=== PATIENT | male | born 1990 ===

== ENCOUNTER → 2021-04-16 15:13 | Outpatient (CLI) | payer OTHER, SELFPAY ==
--- NOTE | ~2021-04-16 | MR_ITS ---
EXAMINATION: MR cervical spine wo con EXAM DATE: 04/16/2021 15:55 INDICATION: Cervical radiculopathy, left-sided neck and shoulder pain. Left-sided chest pain. TECHNIQUE: Multi-sequential, multiplanar MR images of the cervical spine were obtained without contra st. Axial T2, axial T2 MERGE sequence. Sagittal T1, T2, T2 fat saturation images also obtained. Th ere is no prior study for comparison. FINDINGS: There is mild disc disease at C5-6. The vertebral body and disc heights are otherwise well maintained. The vertebral bodies are aligned in the AP dimension. There are no suspicious marrow sig nal abnormalities. The spinal cord signal intensity and intrinsic morphology is normal. Cervicomedull brittni junction is normal in appearance. Paraspinal soft tissue is unremarkable. Incidental low signal i ntensity right thyroid lesion measuring 1.6 cm. Level by level evaluation: C2-C3: Disc does not extend beyond the endplate margin. Uncovertebral joint arthropathy: None. Facet joint arthropathy: None. Neural foraminal stenosis: No stenosis. Central canal stenosis: No stenosis. C3-C4: Disc does not extend beyond the endplate margin. Uncovertebral joint arthropathy: Mild bilateral. Facet joint arthropathy: Mild bilateral. Neural foraminal stenosis: No stenosis. Central canal stenosis: No stenosis. C4-C5: There is a minimal diffuse disc bulge. Uncovertebral joint arthropathy: Mild to moderate bilateral. Facet joint arthropathy: Mild bilateral. Neural foraminal stenosis: Mild bilateral. Central canal stenosis: No stenosis. C5-C6: There is a mild diffuse disc bulge. Uncovertebral joint arthropathy: Mild to moderate. Facet joint arthropathy: Mild. Neural foraminal stenosis: Mild bilateral. Central canal stenosis: Mild. C6-C7: There is a minimal diffuse disc bulge. Uncovertebral joint arthropathy: Mild to moderate right, mild left. Facet joint arthropathy: Minimal. Neural foraminal stenosis: Mild right. Central canal stenosis: No stenosis. C7-T1: Disc does not extend beyond the endplate margin. Uncovertebral joint arthropathy: Mild bilateral. Facet joint arthropathy: None. Neural foraminal stenosis: No stenosis. Central canal stenosis: No stenosis. IMPRESSION: 1. 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 2. Mild disc disease. Reviewed, dictated and finalized at location A. NT SERVICES ADMINISTRATOR
== END ==
PROVIDERS: PCP Emergency Medicine; Visit Provider Emergency Medicine
DX: M53.82 Other specified dorsopathies, cervical region (principal)
CPT/HCPCS: 72141

== ENCOUNTER → 2023-07-17 10:52 | Outpatient (CLI) | payer OTHER, SELFPAY ==
--- NOTE | ~2023-07-17 | US_ITS ---
EXAMINATION: US retroperitoneal comp DATE: 07/17/2023 11:14 INDICATION: Abnormal result of kidney function tests. TECHNIQUE: Multiple ultrasound grayscale images of the kidneys were obtained. COMPARISON: None. FINDINGS: The right kidney measures 13.9 x 5.6 x 6.4 cm. The left kidney measures 13.2 x 6.0 x 7.2 cm. The kidn eys demonstrate normal echogenicity. There is no hydronephrosis in either kidney. No stones identifi ed. The bladder is normal. Incidentally noted diffuse hepatic steatosis. IMPRESSION: 1. Normal kidneys without hydronephrosis. 2. Diffuse hepatic steatosis. Reviewed, dictated and finalized at location B. SPECIALIST
== END ==
DX: R94.4 Abnormal results of kidney function studies (principal); K76.0 Fatty (change of) liver, not elsewhere classified
CPT/HCPCS: 76770

== ENCOUNTER 2024-03-14 11:51 | Outpatient (CLI) | payer OTHER, SELFPAY ==
--- NOTE | ~2024-03-14 | MR_ITS ---
EXAMINATION: MR shoulder LT w con DATE: 03/14/2024 13:25 INDICATION: Superior glenoid labrum lesion. Left shoulder pain. TECHNIQUE: Magnetic resonance imaging (MRI) of the left shoulder was performed without intravenous co ntrast after intra-articular injection of contrast from (MRI arthrogram). COMPARISON: None. FINDINGS: Coracoacromial arch: The acromion undersurface is curved in morphology with anterior hook (type III). The acromioclavicula r joint demonstrates tiny osteophytes. There is a physiologic volume of fluid in subacromial/subdelto id bursa. Rotator cuff: There is mild supraspinatus and infraspinatus tendinopathy. Teres minor tendon is normal. Subscapular is tendon is normal. There is no asymmetric fatty atrophy of the rotator cuff muscle bellies. Biceps tendon and glenoid labrum: Biceps tendon is in bicipital groove. Intra-articular biceps tendon is normal. There is a tear of pos terior labrum from 8:00 to 10:00. There is a 3.4 x 1.8 x 3.9 cm multiloculated paralabral cyst involv ing the spinoglenoid notch. There is contrast in a small portion of the cyst near the joint. Fluid: The glenohumeral joint is well distended by contrast. Bones/cartilage: There is shallow partial thickness causes loss of posterior glenoid. There is cartilage surface irreg ularity of humeral head. IMPRESSION: 1. Posterior labral tear with 3.4 x 1.8 x 3.9 cm paralabral cyst in the spinoglenoid notch. No findin gs of muscle denervation. 2. Mild glenohumeral joint chondrosis. Reviewed, dictated and finalized at location B. IMPRESSION: 1. Posterior labral tear with 3.4 x 1.8 x 3.9 cm paralabral cyst in the spinogl enoid notch. No findings of muscle denervation. 2. Mild glenohumeral joint chondrosis.
--- NOTE | ~2024-03-14 | XR_ITS ---
EXAMINATION: XR fl inj shoulder LT - MR/CT DATE: 03/14/2024 12:38 INDICATION: Superior glenoid labrum lesion of left shoulder. No dislocation or prior surgery. TECHNIQUE: A time-out was performed to verify the patient's name, date of , and procedure to b e performed. The procedure including the risks, benefits, and alternatives was discussed with the pat ient. Risks discussed included bleeding and infection. The patient understood the risks and agreed to proceed. The skin overlying the left glenohumeral joint was prepped and draped in usual sterile fash ion. Anesthetic was administered with 1% lidocaine subcutaneously. A 22 G needle was advanced under fluoroscopic guidance into the joint. Subsequently, injectate consisting of 12 mL of 1:200 Multihan ce, 1:4 1% lidocaine, and 1:4 Omnipaque 240 was instilled. The needle was removed and the entry site was cleaned and dressed. There were no immediate complications. Fluoroscopy exposure time was 0.0 m inutes. The total number of images was 3. FINDINGS: Real-time fluoroscopy demonstrates the needle and contrast in the left glenohumeral joint. IMPRESSION: 1. Successful left glenohumeral joint injection of contrast for subsequent MR arthrography. Reviewed, dictated and finalized at location B. IMPRESSION: 1. Successful left glenohumeral joint injection of contrast for subsequent MR a rthrography.
== END 2024-03-14 11:52 | disposition home or self-care (01) ==
LOC: MICIMG 11:54
PROVIDERS: PCP Orthopaedic Surgery; Visit Provider Orthopaedic Surgery
DX: S43.432A Superior glenoid labrum lesion of left shoulder, initial encounter (principal); X58.XXXA Exposure to other specified factors, initial encounter; I77.89 Other specified disorders of arteries and arterioles; M94.212 Chondromalacia, left shoulder
CPT/HCPCS: 23350; 73222; Q9967